=== PATIENT | male | born 1960 | race Caucasian/White ===

== ENCOUNTER 2016-06-25 03:15 | Emergency (ER) | payer OTHER ==
[~2016-06-25] VITALS: Ht 170.2 cm; Wt 111.4 kg
[~2016-06-25 03:15] MED LIST: ACTOS30 MG PO; ALBUTEROL17 GM IH; ANDROGEL150 GM TD; ATORVASTATIN CA40 MG PO; BACTRIM,SEPT1 TABLET PO; BUSPAR5 MG PO; CLEOCIN150 MG PO; CLEOCIN300 MG PO; CLINDAMYCIN HC150 MG PO; CLINDAMYCIN HC300 MG PO; CLONAZEPAM0.5 MG PO; CLONAZEPAM1 MG PO; CYMBALTA30 MG PO; CYMBALTA60 MG PO; DILAUDID2 MG PO; ENDOCET 5-3251 EACH PO; FENOFIBRIC ACI135 MG PO; FLOMAX0.4 MG PO; GABAPENTIN600 MG PO; GLIPIZIDE10 M1 PO; GLIPIZIDE10 MG PO; GLUCOPHAGE XR1000 MG PO; HYDROCODON-ACE1 EAC7 PO; HYDROCODON-ACE1 EAC8 PO; HYDROMORPHONE ER8 MG PO; HYDROMORPHONE HC8 MG PO; INDOCIN25 MG PO; INDOMETHACIN25 MG PO; JANUMET 50/11 TABLET PO; LANTUS 10100 UNITS/ SC; LANTUS 3 M100 UNITS1 SC; LISINOPRIL-HCT1 EAC3 PO; LOPRESSOR50 MG PO; METOPROLOL SUC100 MG PO; MOBIC7.5 MG PO; MONTELUKAST SOD10 MG PO; NAPROSYN500 MG PO; OMEPRAZOLE20 M2 PO; OMEPRAZOLE20 MG PO; PIOGLITAZONE HC15 MG PO; PREDNISONE10 MG PO; RISPERDAL0.5 MG PO; RISPERDAL4 MG PO; RISPERIDONE0.5 MG PO; ROPINIROLE HC0.25 MG PO; SINGULAIR10 MG PO; SPIRIVA1 INHALATI IH; TORADOL10 MG PO; TRAMADOL HCL50 MG PO; VICODIN 5-5001 EACH PO; VICODIN,LORT1 TABLET PO; VOLTAREN 1% GE100 GM TP; ZESTRIL20 MG PO; ZOCOR80 MG PO; ZOFRAN ODT8 MG PO
[2016-06-25] MEDS ORDERED: CLINDAMYCIN HC300 MG PO (03:45)
[2016-06-25 03:52] VITALS: BP 138/68
== END 2016-06-25 03:53 | disposition home or self-care (01) ==
LOC: EME 03:15
DX: K02.9 Dental caries, unspecified (principal); K04.7 Periapical abscess without sinus; E11.9 Type 2 diabetes mellitus without complications; J44.9 Chronic obstructive pulmonary disease, unspecified; E78.5 Hyperlipidemia, unspecified; I10 Essential (primary) hypertension; K21.9 Gastro-esophageal reflux disease without esophagitis; F31.9 Bipolar disorder, unspecified; Z87.440 Personal history of urinary (tract) infections; Z87.442 Personal history of urinary calculi; Z79.84 Long term (current) use of oral hypoglycemic drugs; Z79.4 Long term (current) use of insulin; F17.200 Nicotine dependence, unspecified, uncomplicated
CPT/HCPCS: 99281; 99283